=== PATIENT | female | born 1995 | race Caucasian/White ===

== ENCOUNTER → 2016-05-11 | Outpatient (CLI) | payer OTHER ==
[~2016-05-11] MED LIST: ALBU1AER9 INH; CLC100X PO; OXYC-57 PO; PRENTAB26 PO
[2016-05-11 13:54] LABS: GTGD 50 Grams
== END | disposition home or self-care (01) ==
LOC: C.LAB1850 12:20
PROVIDERS: ATTEND Obstetrics & Gynecology
DX: Z34.82 Encounter for supervision of other normal pregnancy, second trimester (principal)

== ENCOUNTER → 2016-07-30 | Outpatient (CLI) | payer OTHER, BC ==
[2016-07-30 14:40] LABS: HEMATOCRIT 34.8 % (37-47)
[2016-07-30 17:54] LABS: GTGD 50 Grams
== END | disposition home or self-care (01) ==
LOC: C.LAB1850 12:38
PROVIDERS: ATTEND Obstetrics & Gynecology
DX: Z34.83 Encounter for supervision of other normal pregnancy, third trimester (principal)

== ENCOUNTER → 2016-07-30 | Outpatient (CLI) | payer OTHER, BC ==
[2016-07-30 15:06] LABS: URINE APPEARANCE CLEAR (CLEAR); URINE BILIRUBIN NEG (NEG); URINE COLOR YELLOW; URINE EPITHELIAL CELL AUTO >30 /lpf (0-5); URINE NITRITE NEG (NEG); URINE PH 7.5 (4.5-7.5); URINE SPECIFIC GRAVITY 1.019 (1.000-1.030); UROBILINOGEN NEG (NEG)
[2016-07-30 15:08] LABS: MANUAL MICROSCOPIC REQUIRED? NO; REVIEW REQ? NO
== END | disposition home or self-care (01) ==
LOC: C.LABSPEC 13:39
PROVIDERS: ATTEND Obstetrics & Gynecology
DX: Z34.83 Encounter for supervision of other normal pregnancy, third trimester (principal)

== ENCOUNTER → 2016-10-02 | Outpatient (CLI) | payer OTHER, BC | END | disposition home or self-care (01) | LOC: C.LABSPEC 14:02 | PROVIDERS: ATTEND Obstetrics & Gynecology | DX: Z34.83 Encounter for supervision of other normal pregnancy, third trimester (principal) ==

== ENCOUNTER 2016-10-18 05:27 | Outpatient (CLI) | payer OTHER, BC ==
[~2016-10-18] VITALS: Ht 165.1 cm; Wt 88.0 kg
[~2016-10-18 05:27] MED LIST changes: -OXYC-57 PO
[2016-10-18 06:19] VITALS: Ht 165.1 cm; Wt 88.0 kg
[2016-10-28] MEDS ORDERED: OXYC-57 PO (08:58)
== END 2016-10-18 12:25 | disposition home or self-care (01) ==
LOC: C.OPB 05:27 → EEVIPCON 05:27 → C.LD 05:29 → C.OPB 12:25
PROVIDERS: ATTEND Obstetrics & Gynecology
DX: O62.9 Abnormality of forces of labor, unspecified (principal); O99.513 Diseases of the respiratory system complicating pregnancy, third trimester; J45.909 Unspecified asthma, uncomplicated; O99.613 Diseases of the digestive system complicating pregnancy, third trimester; K58.9 Irritable bowel syndrome, unspecified; Z3A.39 39 weeks gestation of pregnancy; Z87.442 Personal history of urinary calculi

== ENCOUNTER 2016-10-26 22:44 | Inpatient (IN) | payer OTHER, BC ==
[~2016-10-26] VITALS: Ht 160 cm; Wt 89.0 kg
[~2016-10-26 22:44] MED LIST changes: -CLC100X PO
[2016-10-26] MEDS ORDERED: LACTATED RINGER'S 1000ML 1,000 ML IV PRN ×2 (23:11→23:59)
[2016-10-26] MEDS ORDERED: LACTATED RINGER'S 1000ML 1,000 ML IV SCH ×2 (23:11→23:59)
[2016-10-26] MEDS ORDERED: BUPIVACAINE 0.25% 30 ML VIAL ONE (23:25)
[2016-10-26] MEDS ORDERED: FENTANYL 2MCG/ML ROPIV 1.25MG/ML 100ML BAG EPI ONE (23:26)
[2016-10-26] MEDS ORDERED: FENTANYL CITRATE INJ 50 MCG/1 ML 2 ML VIAL ONE (23:26)
[2016-10-26] MEDS ORDERED: EpHEDrine SULFATE INJ 50 MG/ML AMP ONE (23:26)
[2016-10-26 23:30] LABS: HEMATOCRIT 38.1 % (37-47); MEAN CELL VOLUME 84.3 fL (80-100); MEAN CORPUSCULAR HEMOGLOBIN 27.4 pg (25-34); MEAN CORPUSCULAR HGB CONC 32.5 g/dl (32-36); MEAN PLATELET VOLUME 12.4 fL (7.4-10.4); PLATELET COUNT 179 K/uL (130-400); RED BLOOD COUNT 4.52 M/uL (4.2-5.4)
[2016-10-27] MEDS ORDERED: LACTATED RINGER'S 1000ML 500 ML IV PRN (00:42)
[2016-10-27] MEDS ORDERED: NALOXONE HCL INJ 1 MG in SODIUM CHLORIDE 0.9% 1000ML 1,000 ML IV PRN (00:42)
[2016-10-27] MEDS ORDERED: NALBUPHINE HCL INJ 10 MG/ML AMP IV PRN (00:45)
[2016-10-27] MEDS ORDERED: ONDANSETRON INJ 2 MG/ML 2 ML VIAL IV PRN (00:45)
[2016-10-27] MEDS ORDERED: EpHEDrine SULFATE INJ 50 MG/ML AMP IV PRN (00:45)
[2016-10-27] MEDS ORDERED: FENTANYL 2MCG/ML ROPIV 1.25MG/ML 100ML BAG EPI PRN (00:45)
[2016-10-27] MEDS ORDERED: NALOXONE HCL INJ 0.4 MG/1 ML VIAL/CARP IV PRN (00:45)
[2016-10-27] MEDS ORDERED: DiphenhydrAMINE HCL 50 MG/ML VIAL IV PRN (00:45)
[2016-10-27 00:59] VITALS: Ht 160 cm; Wt 89.0 kg
[2016-10-27] MEDS ORDERED: OXYTOCIN 30 UNITS/500ML NSS IV ONE ×2 (01:59→02:07)
[2016-10-27] MEDS ORDERED: SUPERCREAM 0.870 % 15GM JAR EXT PRN (02:30)
[2016-10-27] MEDS ORDERED: ACETAMINOPHEN/CODEINE 300/30MG TAB PO PRN (02:30)
[2016-10-27] MEDS ORDERED: OXYTOCIN 30 UNITS/500ML NSS IV PRN (02:30)
[2016-10-27] MEDS ORDERED: ACETAMINOPHEN 325 MG TAB PO PRN (02:30)
[2016-10-27] MEDS ORDERED: BENZOCAINE 20% AER SPR 82.5 GM CAN EXT PRN (02:30)
[2016-10-27] MEDS ORDERED: HYDROCORTISONE ACETATE 25 MG SUPP PR PRN (02:30)
[2016-10-27] MEDS ORDERED: LANOLIN OINT EXT PRN ×2 (02:30)
--- NOTE | 2016-10-27 02:35 | Vaginal Delivery Summary ---
Vaginal Delivery Summary Findings: Viable female with Apgars of 8 and 9. Baby delivered over a midline second-degree laceration. Laceration repaired with 4-0 Vicryl in routine fashion. Estimated blood loss 300 cc. Labor note: The patient is a 21-year-old 2 para 1 with an EDC of 15July at 40+ weeks gestational age who presented to labor and delivery for evaluation of questionable ruptured membranes. Patient states that she began having contractions and leaking fluid. The patient has had a benign course. Her blood type is O+, antibody negative, rubella immune, hepatitis B negative, she declined quad screen, she had a normal 1 hour Glucola 2, negative third trimester beta strep culture. Upon admission the patient's membranes were found to be intact but she was 5-6 cm junior regularly in labor. She had a category 1 tracing. Patient requested and received an epidural from anesthesia. Following the epidural the patient was fully dilated with ruptured membranes. Patient pushed for approximately 10 minutes delivering a viable female infant, over a midline second-degree laceration. Cord was clamped and cut. Cord blood Samples were obtained. Placenta was delivered spontaneously. Midline laceration repaired with 4-0 Vicryl in a routine fashion. Estimated blood loss 300 cc. Sponge and needle count was correct.
--- NOTE | 2016-10-27 05:03 | Anesthesia Procedure Note ---
Anesthesia Epidural Removal Nt Date & Time Oct 27, 2016 at 05:03 Vital Signs Pain Intensity: 1.0 Notes Mental Status: alert / awake / arousable, participated in evaluation Nausea / Vomiting: adequately controlled Pain: adequately controlled Airway Patency, RR, SpO2: stable & adequate BP & HR: stable & adequate Hydration State: stable & adequate Neuraxial Anesthesia: was administered Anesthetic Complications: no major complications apparent, pt satisfied with anesthetic care Epidural: removed without complications, with tip intact
[2016-10-27] MEDS: IBUPROFEN 600 MG TAB PO PRN ×4 (05:38→23:12)
[2016-10-27 05:45] VITALS: BP 136/69; PULSE 88; TEMP 36.9
[2016-10-27 07:00] VITALS: BP 135/73; PULSE 76; TEMP 36.9; O2SAT 98
[2016-10-27] MEDS: PRENATAL VITAMIN TAB PO SCH (08:17)
[2016-10-27] MEDS: DOCUSATE SODIUM 100 MG CAP PO SCH ×2 (08:17→19:37)
[2016-10-27] MEDS: FERROUS SULFATE 325 MG TAB PO SCH (08:17)
[2016-10-27 11:25] VITALS: BP 126/77; PULSE 58; TEMP 36.8; O2SAT 98
[2016-10-27 16:00] VITALS: BP 126/83; PULSE 83; TEMP 36.6
[2016-10-27] MEDS: ACETAMINOPHEN/CODEINE 300/30MG TAB PO PRN ×2 (19:38→23:13)
[2016-10-27 19:40] VITALS: BP 124/77; PULSE 87; TEMP 36.5
[2016-10-27 23:45] VITALS: BP 126/76; PULSE 88; TEMP 36.6
[2016-10-28] MEDS ORDERED: OXYCODONE/ACETAMINOPHEN 5-325 TAB PO PRN (04:15)
[2016-10-28] MEDS: IBUPROFEN 600 MG TAB PO PRN ×2 (04:33→08:55)
[2016-10-28] MEDS ORDERED: OXYCODONE/ACETAMINOPHEN 5-325 TAB ONE (05:05)
--- NOTE | 2016-10-28 06:56 | OB/GYN Progress Note ---
TECHNICIAN ASSISTANT Progress Note Date of Service Oct 28, 2016. Subjective conversation w/ patient, physical exam, chart review, lab review Ambulation: ambulating normally Voiding: no voiding problems Passing Gas: Yes Diet Tolerance: Regular Diet Lochia: Small Feeding Type: Breast Feeding (and bottle supplement) Pain: Says has some tailbone pain, controlled with PO pain meds Review of Systems Constitutional: No fever Respiratory: No cough, No shortness of breath Cardiac: No chest pain Abdomen: No nausea, No vomiting, No diarrhea Female : No dysuria Objective Vital Signs Date Time Temp Pulse Resp B/P (MAP) Pulse Ox O2 Delivery O2 Flow Rate FiO2 10/27/16 23:45 36.6 88 18 126/76 (93) Room Air 10/27/16 23:45 Room Air 10/27/16 19:40 36.5 87 18 124/77 (93) 10/27/16 16:00 36.6 83 16 126/83 (97) Room Air 10/27/16 16:00 Room Air 10/27/16 11:25 36.8 58 16 126/77 (93) 98 Room Air 10/27/16 08:45 Room Air 10/27/16 07:00 36.9 76 16 135/73 (93) 98 Room Air Physical Exam General Appearance: WELL-APPEARING, WD/WN, NO APPARENT DISTRESS Respiratory/Chest: lungs clear, normal breath sounds Cardiovascular: regular rate, rhythm Abdomen: normal bowel sounds, non tender, soft Fundus: Firm, Non-Tender, Relation to Umbilicus (at umbilicus) Extremities: normal range of motion, non-tender, no pedal edema, no calf tenderness Laboratory Results Last 24 Hours Test 10/28/16 06:24 Assessment and Plan Post- Day Number: 1 Continue Routine Care: 21yo s/p , now PPD #1. - Blood type O pos. GBS negative. Rubella immune. - Vital signs reviewed and stable. - Pain controlled with motrin. - No leg swelling or tenderness on calf palpation. Encourage ambulation. - Encourage breast feeding. - Hemoglobin preop 12.4, post-delivery pending this am. Bleeding has improved. Continue to monitor clinically. - Continue routine post-vaginal delivery care. - Pt agreed with above plan, all current questions answered. Rafa Ruth MD, PGY1 Roof Assembler Physician Supervision Note: I was present with Dr. Ruth during the history and exam. I discussed the case with the resident and agree with the findings and plan as documented in the note. Any exceptions or clarifications are listed here: PPD#1, doing well . Does have tailbone pain, likely bruised. Recommend stool softeners , donut pillow. For pain, percocet has helped. Rx percocet #15 tabs given for tailbone pain - [place] PDMP check. Documented By: Tracy Briceño Resident Tracking Resident Involvement: Resident Care Provided Care Provided: OB Delivery (morning rounds)
[2016-10-28 07:30] VITALS: BP 104/67; PULSE 78; TEMP 36.6
[2016-10-28] MEDS: DOCUSATE SODIUM 100 MG CAP PO SCH (07:37)
[2016-10-28] MEDS: PRENATAL VITAMIN TAB PO SCH (07:37)
[2016-10-28] MEDS: FERROUS SULFATE 325 MG TAB PO SCH (07:37)
--- NOTE | 2016-10-28 08:24 | Discharge Instructions ---
Discharge Instructions Date of Service Oct 28, 2016. Admission Reason for Admission: Check Rupture Discharge Discharge Diagnosis / Problem: Recovery after vaginal delivery Discharge Goals Goal(s): Routine recovery after delivery Medications Continue Dispensed Medications: supercream, dermaplast, tucks, lansinoh Activity Recommendations Activity Limitations: per Instructions/Follow-up section . Instructions / Follow-Up Instructions / Follow-Up ACTIVITY RECOMMENDATIONS: * Gradual return to full activity over the next 2-3 weeks. * No lifting - nothing heavier than baby over the next 2-3 weeks. * Do not engage in vigorous exercise, sexual activity or sports until cleared by your physician. * Do not drive or operate any motorized equipment until cleared by your physician. * You may shower/bathe daily. MEDICATIONS: For discomfort or pain, you may use Acetaminophen (Tylenol), Ibuprofen (Advil), or Naproxen (Aleve) following the package directions. For constipation you may use Colace following the package directions. BREAST CARE: If you are not breast feeding: * Wear a supportive bra 24 hours a day for one to two weeks. * Avoid stimulating your breasts and nipples as much as possible during the first few weeks after delivery. * When taking a shower, have the warm water hit your back, not breasts. * When your breasts feel full, apply ice packs. Usually three to four times a day helps ease the discomfort. * Take a mild pain medication (Tylenol / Motrin) when you are uncomfortable. If breast feeding: * Use breast milk to lubricate nipples. Lansinoh cream may be used for sore nipples. You do not need to remove cream prior to breast feeding. If using a different brand of cream, check the label for directions regarding removal of cream prior to nursing. * Wear a supportive bra. * If having problems with breasts or breast feeding, call a merchandising consultant or your health care provider. EPISIOTOMY CARE: After delivery, if you have an episiotomy (stitches), the following steps will ease discomfort and aid healing. * For the first 24 hours after delivery, place ice packs next to your episiotomy to help reduce swelling. * After the first 24 hour-period, sitz baths, either portable or in the tub, are suggested. A shower with a shower arm sprayed over the episiotomy may be comforting. * Keke care should be done after each voiding and bowel movement. Squirt warm water from a plastic bottle over the perineum (region of the body between the anus and urinary opening) and pat dry. * Use Dermoplast to ease discomfort. Shake container. Stickney directly over the episiotomy. Place a Tucks on a clean sanitary pad next to your episiotomy. SPECIAL CARE INSTRUCTIONS: When you are discharged from the hospital, it is important for you to follow the instructions listed below: * During the first week at home, you should be able to care for yourself and your baby. In addition, the usual light household activities are encouraged. * Limit your activities to the way you feel. Do not try to clean the house or move furniture. Be sensible. * If you actively engage in sports and have done so up until the time of your delivery, you may resume these activities as soon as you feel able. This may take up to one month or even longer. Use good judgment. * Continue to take your vitamins for at least six weeks after the of your baby. * Your diet need not be limited unless you were on a special diet before your delivery. Breast-feeding mothers need around 2500 calories per day and at least 64-80 ounces of fluid per day (8 to 10 glasses). * You should eat foods from the four major food groups. Crash diets or fad diets are to be avoided. Eating lean meats, fresh fruits and vegetables, low-fat dairy products, high fiber foods and a regular exercise program, will help you get back to your pre- weight without putting your health at risk. * Constipation is sometimes a problem after delivery. Take a mild laxative as needed. If breast feeding, Milk of Magnesia is acceptable to use. You may use a suppository or Fleets enema if no episiotomy. * A daily shower or tub bath is suggested. Be sure to thoroughly and gently dry the perineum. * A bloody vaginal discharge will usually continue until around four weeks post . A small amount of bleeding may continue for as long as six weeks. Vaginal discharge changes from the bright red bleeding after delivery to pink then brownish and finally yellowish-pink before becoming white and disappearing. * Bleeding may increase with activity. Your first period may come in 4-8 weeks. If you are breast feeding, your period may be delayed even longer. * York[place] (sex) can begin whenever both you and your partner feel comfortable and do not have any form of genital infection. It is recommended that you wait at least six weeks for internal and external healing to occur. If you have questions, please talk to your health care practitioner. A condom should be used to prevent infection and . * Foreplay, gentle intercourse and lubrication is very important the first several times to prevent pain. A water-based lubricant such as K-Y jelly or Astroglide may be used. * If you have RH negative blood and your baby is RH positive, you will receive RHOGAM by injection prior to discharge. The nurse will give you a card to keep with you that has the date and place that you received RHOGAM after delivery. * During your care, you had a Rubella screen done to check for the presence of rubella antibodies in your blood. If your test was negative, you will receive a Rubella vaccine prior to discharge. This vaccine may cause a fever, soreness at the injection site and flu-like symptoms. If these symptoms persist, notify your health care practitioner. is not advised for one month after a Rubella vaccine. * Verbalizes understanding of car seat law as reviewed with patient nursing. * Car Seat hand-out given and reviewed with patient by nursing. * Shaken baby information reviewed with patient by nursing. Call you doctor if: * Heavy bleeding (saturating several pads an hour) or passing clots the size of your fist. * A fever >101 degrees F (38.3 degrees C) on two occasions four hours apart and /or chills. * Unusual pain in the pelvic or vaginal areas. * "Baby Blues" lasting longer than two weeks. If you have any questions or concerns, call your health care practitioner at . FOLLOW UP VISIT: * Please call the office at to schedule a 6 week examination. It is important you keep this appointment. It is important for you to make arrangements for either yearly or twice yearly check-ups thereafter. Current Hospital Diet Patient's current hospital diet: Regular OB Diet Discharge Diet Recommended Diet: Regular OB Diet Pending Studies Studies pending at discharge: no Medical Emergencies . Who to Call and When: Medical Emergencies: If at any time you feel your situation is an emergency, please call [phone] immediately. . Non-Emergent Contact Non-Emergency issues call your: Pie Crust Mixer . . "Provider Documentation" section prepared by Rafa Ruth. . VTE Core Measure Inpt VTE Proph given/why not?: Treatment not indicated
[2016-10-28] MEDS ORDERED: OXYC-57 PO (08:58)
[2016-10-28] MEDS ORDERED: DIPHTHERIA/TETANUS/PERTUSSIS 0.5 ML SYR/VIAL IM. ONE (09:00)
[2016-10-28 11:13] VITALS: BP_DIAS 67; PULSE 78; TEMP 36.6
[2016-10-28] MEDS ORDERED: BISACODYL 5 MG TABEC PO SCH (20:00)
== END 2016-10-28 11:20 | disposition home or self-care (01) | DRG 775 ==
LOC: C.OPB 22:44 → EEVIPCON 22:44 → C.LD 22:44 → C.OPB 23:12 → C.LD 23:12 → C.OBG 10-27 05:49
PROVIDERS: ADMIT Obstetrics & Gynecology; ATTEND Obstetrics & Gynecology
PROC: 0KQM0ZZ Repair Perineum Muscle, Open Approach (ICD-10-PCS; principal; 2016-10-27)
PROC: 10E0XZZ Delivery of Products of Conception, External Approach (ICD-10-PCS; principal; 2016-10-27)
DX: O48.0 Post-term pregnancy (principal); O70.1 Second degree perineal laceration during delivery; O71.89 Other specified obstetric trauma; Z37.0 Single live birth; Z3A.40 40 weeks gestation of pregnancy

== ENCOUNTER 2017-03-23 19:03 | Observation (INO) | payer OTHER, BC ==
[~2017-03-23] VITALS: Ht 160 cm; Wt 80.6 kg
[~2017-03-23 19:03] MED LIST changes: +OXYC-57 PO; -PRENTAB26 PO
[2017-03-23] MEDS ORDERED: ONDANSETRON INJ 2 MG/ML 2 ML VIAL IV STA ×2 (19:17→21:18)
[2017-03-23] MEDS ORDERED: MoRPHine SULFATE 10 MG/ML CARP/VIAL IV STA (19:17)
[2017-03-23] MEDS ORDERED: SODIUM CHLORIDE 0.9% 1000ML 1,000 ML IV STA (19:17)
[2017-03-23 19:42] LABS: BASO % 0.5 %; BASO ABS # 0.04 K/uL (0-0.2); COMPLETE YES; HEMATOCRIT 42.3 % (37-47); IG% 0.3 %; LYMPH % 29.3 %; LYMPH ABS # 2.15 K/uL (1.2-3.4); MEAN CELL VOLUME 86.7 fL (80-100); MEAN CORPUSCULAR HEMOGLOBIN 29.1 pg (25-34); MEAN CORPUSCULAR HGB CONC 33.6 g/dl (32-36); MONO % 5.4 %; NEUT % 62.5 %; PLATELET COUNT 245 K/uL (130-400); RED BLOOD COUNT 4.88 M/uL (4.2-5.4); WHITE BLOOD COUNT 7.35 K/uL (4.8-10.8)
[2017-03-23 19:45] LABS: URINE APPEARANCE CLEAR (CLEAR); URINE BILIRUBIN NEG (NEG); URINE COLOR YELLOW; URINE EPITHELIAL CELL AUTO >30 /lpf (0-5); URINE NITRITE NEG (NEG); URINE SPECIFIC GRAVITY 1.025 (1.000-1.030); UROBILINOGEN NEG (NEG)
[2017-03-23 19:54] LABS: MANUAL MICROSCOPIC REQUIRED? NO; REVIEW REQ? NO
[2017-03-23 19:57] LABS: BUN/CREATININE RATIO 14.9 (10-20); CALCIUM 9.7 mg/dl (8.5-10.1); CREATININE 0.9 mg/dl (0.60-1.20); POTASSIUM 3.5 mmol/L (3.5-5.1)
[2017-03-23] MEDS ORDERED: ALBU18002 INH (19:58)
[2017-03-23 20:00] LABS: ALB/GLOB RATIO 1.1 (0.9-2)
[2017-03-23] MEDS ORDERED: HYDROmorphone INJ 1 MG/ML SYR IV STA (20:12)
--- NOTE | 2017-03-23 20:31 | DIAGNOSTIC IMAGING REPORT ---
CT OF THE ABDOMEN AND PELVIS WITHOUT CONTRAST CLINICAL HISTORY: Right lower quadrant pain. Right flank pain. COMPARISON STUDY: CT of the abdomen and pelvis November 20, 2013 and [facility] February 14, 2014. TECHNIQUE: Axial images of the abdomen and pelvis were obtained without IV contrast. Images were reviewed in the axial, sagittal, and coronal planes. A dose lowering technique was utilized adhering to the principles of ALARA. FINDINGS: Note is made of severe right hydroureteronephrosis due to a 7 mm distal right ureteral calculus. There is a 2 mm calculus within the upper pole of the right kidney. There are no left ureteral calculi. Evaluation the remainder of the abdomen and pelvis is suboptimal on this unenhanced exam. The liver, spleen, adrenal glands and pancreas are unremarkable. There is no evidence for a bowel obstruction. The appendix is normal. There is no lymphadenopathy. There are no suspicious skeletal lesions. Right adrenal calcifications are chronic. IMPRESSION: 1. 7 mm distal right ureteral calculus which results in severe right hydroureteronephrosis. 2. 2 mm right renal calculus. Electronically signed by: Ruy Samuel M.D. 03/23/2017 8:30 PM Dictated Date/Time: 03/23/2017 8:25 PM
[2017-03-23] MEDS ORDERED: PROMETHAZINE HCL INJ 25 MG in SODIUM CHLORIDE 0.9% 50ML 50 ML IV STA (21:18)
[2017-03-23] MEDS ORDERED: HYDROmorphone INJ 0.5 MG/0.5 ML SYR IV STA (21:18)
[2017-03-23] MEDS ORDERED: TAMSULOSIN HCL 0.4 MG CAP PO ONE (21:30)
--- NOTE | 2017-03-23 21:40 | EMERGENCY ROOM VISIT NOTE ---
History First contact with patient: 19:13 Chief Complaint: KIDNEY STONE Stated Complaint: KIDNEY STONES History of Present Illness The patient is a 22 year old female who presents to the Emergency Room with complaints of a possible kidney stone. She reports pain that started around 5 PM that was sudden in onset. The pain radiates from her right flank into her right groin and vaginal region. The patient has had kidney stones in the past, and reports that this feels the same. She reports mild nausea without vomiting. She denies any preceding urinary symptoms or hematuria. She denies any prior history of ovarian cyst or other abdominal surgeries. She rates her discomfort a 7 out of 10. The pain does not radiate into the left abdomen region. There are no alleviating a regular any factors for her pain, and she describes the pain as a very slow waxing and waning discomfort. Review of Systems HEENT: Denies dizziness, visual problems, hearing loss, tinnitus. Denies difficulty swallowing or oral lesions. PULMONARY: Denies cough, shortness of breath, sputum production or hemoptysis. CARDIOVASCULAR: Denies chest pain, palpitations, dyspnea on exertion, orthopnea or peripheral edema. GASTROINTESTINAL: Denies diarrhea or constipation, otherwise see history of present illness. GENITOURINARY: Denies dysuria, frequency, urgency or nocturia. NEUROLOGIC: Denies history of epilepsy, CVA, TIA or chronic headaches. MUSCULOSKELETAL: Denies history of joint tenderness/swelling. SKIN: Denies rashes or lesions. PSYCHIATRIC: Denies history of depression or mental illness. ENDOCRINE: Denies history of diabetes or thyroid disorders. Past Medical/Surgical History Medical Problems: (1) Intrauterine (2) postdates (3) Renal colic (4) Supervision of normal intrauterine in multigravida in third trimester Family History Unremarkable Social History Smoking Status: Never Smoker Alcohol Use: none Marital Status: single Housing Status: lives with family Occupation Status: employed Current/Historical Medications Scheduled Multivit/Min/Iron/Fol Ac/Pren ( Vitamin), 1 TAB PO DAILY Scheduled PRN Albuterol Sulfate (Proair Respiclick), 2 PUFFS INH UD PRN for Shortness of Breath Physical Exam Vital Signs Date Time Temp Pulse Resp B/P (MAP) Pulse Ox O2 Delivery O2 Flow Rate FiO2 03/23/17 21:06 105 16 114/58 100 Room Air 03/23/17 19:08 36.4 81 18 141/87 100 Room Air Physical Exam CONSTITUTIONAL: Healthy and well nourished. Alert and oriented X 3 with positive affect. Patient appears in moderately severe discomfort, and is crying. HEENT: Normocephalic, atraumatic. Pupils equal, round and reactive. No scleral icterus or conjunctival injection. NECK: Full active range of motion without discomfort. RESPIRATORY: Clear to auscultation bilaterally with no wheezing, crackles, rhonchi or stridor. CARDIOVASCULAR: Regular rate and rhythm with no murmurs, rubs or gallops. GASTROINTESTINAL: Bowel sounds present in all quadrants. Patient has mild right lower quadrant tenderness to palpation with negative Rovsing sign, negative psoas/obturator sign and negative heel tap. Mildly positive right CVA tenderness. No abdominal rigidity, guarding or rebound. MUSCULOSKELETAL: Full range of motion of all joints without discomfort. INTEGUMENTARY: No rash or other significant dermatologic conditions noted. HEMATOLOGIC: No ecchymosis or petechiae noted. NEUROLOGIC: No focal neurologic deficits noted. Medical Decision & Procedures ER Provider Diagnostic Interpretation: Noncontrast CT of the abdomen and pelvis CT OF THE ABDOMEN AND PELVIS WITHOUT CONTRAST CLINICAL HISTORY: Right lower quadrant pain. Right flank pain. COMPARISON STUDY: CT of the abdomen and pelvis November 20, 2013 and [facility] February 14, 2014. TECHNIQUE: Axial images of the abdomen and pelvis were obtained without IV contrast. Images were reviewed in the axial, sagittal, and coronal planes. A dose lowering technique was utilized adhering to the principles of ALARA. FINDINGS: Note is made of severe right hydroureteronephrosis due to a 7 mm distal right ureteral calculus. There is a 2 mm calculus within the upper pole of the right kidney. There are no left ureteral calculi. Evaluation the remainder of the abdomen and pelvis is suboptimal on this unenhanced exam. The liver, spleen, adrenal glands and pancreas are unremarkable. There is no evidence for a bowel obstruction. The appendix is normal. There is no lymphadenopathy. There are no suspicious skeletal lesions. Right adrenal calcifications are chronic. IMPRESSION: 1. 7 mm distal right ureteral calculus which results in severe right hydroureteronephrosis. 2. 2 mm right renal calculus. Laboratory Results 03/23/17 19:22 Red Blood Count 4.88, Mean Corpuscular Volume 86.7, Mean Corpuscular Hemoglobin 29.1, Mean Corpuscular Hemoglobin Concent 33.6, Mean Platelet Volume 12.0, Neutrophils (%) (Auto) 62.5, Lymphocytes (%) (Auto) 29.3, Monocytes (%) (Auto) 5.4, Eosinophils (%) (Auto) 2.0, Basophils (%) (Auto) 0.5, Neutrophils # (Auto) 4.59, Lymphocytes # (Auto) 2.15, Monocytes # (Auto) 0.40, Eosinophils # (Auto) 0.15, Basophils # (Auto) 0.04 03/23/17 19:22 Test 03/23/17 19:22 03/23/17 21:33 White Blood Count 7.35 K/uL (4.8-10.8) Red Blood Count 4.88 M/uL (4.2-5.4) Hemoglobin 14.2 g/dL (12.0-16.0) Hematocrit 42.3 % (37-47) Mean Corpuscular Volume 86.7 fL (80-100) Mean Corpuscular Hemoglobin 29.1 pg (25-34) Mean Corpuscular Hemoglobin Concent 33.6 g/dl (32-36) Platelet Count 245 K/uL (130-400) Mean Platelet Volume 12.0 fL (7.4-10.4) Neutrophils (%) (Auto) 62.5 % Lymphocytes (%) (Auto) 29.3 % Monocytes (%) (Auto) 5.4 % Eosinophils (%) (Auto) 2.0 % Basophils (%) (Auto) 0.5 % Neutrophils # (Auto) 4.59 K/uL (1.4-6.5) Lymphocytes # (Auto) 2.15 K/uL (1.2-3.4) Monocytes # (Auto) 0.40 K/uL (0.11-0.59) Eosinophils # (Auto) 0.15 K/uL (0-0.5) Basophils # (Auto) 0.04 K/uL (0-0.2) RDW Standard Deviation 39.9 fL (36.4-46.3) RDW Coefficient of Variation 12.6 % (11.5-14.5) Immature Granulocyte % (Auto) 0.3 % Immature Granulocyte # (Auto) 0.02 K/uL (0.00-0.02) Urine Color YELLOW Urine Appearance CLEAR (CLEAR) Urine pH 6.0 (4.5-7.5) Urine Specific Wayne 1.025 (1.000-1.030) Urine Protein TRACE (NEG) Urine Glucose (UA) NEG (NEG) Urine Ketones NEG (NEG) Urine Occult Blood 1+ (NEG) Urine Nitrite NEG (NEG) Urine Bilirubin NEG (NEG) Urine Urobilinogen NEG (NEG) Urine Leukocyte Esterase NEG (NEG) Urine WBC (Auto) 1-5 /hpf (0-5) Urine RBC (Auto) 5-10 /hpf (0-4) Urine Hyaline Casts (Auto) 1-5 /lpf (0-5) Urine Epithelial Cells (Auto) >30 /lpf (0-5) Urine Bacteria (Auto) NEG (NEG) Urine Test NEG (NEG) Anion Gap 9.0 mmol/L (3-11) Est Creatinine Clear Calc Drug Dose 96.9 ml/min Estimated GFR () 103.7 Estimated GFR (Non- 89.5 BUN/Creatinine Ratio 14.9 (10-20) Calcium Level 9.7 mg/dl (8.5-10.1) Total Bilirubin 0.4 mg/dl (0.2-1) Aspartate Amino Transf (AST/SGOT) 20 U/L (15-37) Alanine Aminotransferase (ALT/SGPT) 24 U/L (12-78) Alkaline Phosphatase 64 U/L (45-117) Total Protein 8.3 gm/dl (6.4-8.2) Albumin 4.3 gm/dl (3.4-5.0) Globulin 4.0 gm/dl (2.5-4.0) Albumin/Globulin Ratio 1.1 (0.9-2) Lipase 327 U/L (73-393) The above labs were reviewed. Urinalysis shows hematuria without signs of infection. CBC, partial renal profile, LFTs and lipase are normal. Urine was negative. Medications Administered Medications (Trade) Dose Ordered Sig/Yasmany Route Start Time Stop Time Status Last Admin Dose Admin Sodium Chloride 1,000 ml @ 999 mls/hr Q1H1M STAT IV 03/23/17 19:17 1217 20:17 DC 03/23/17 19:17 999 MLS/HR Morphine Sulfate (MoRPHine SULFATE INJ) 8 mg NOW STAT IV 03/23/17 19:17 12/12/17 19:19 DC 03/23/17 19:36 8 MG Ondansetron HCl (Zofran Inj) 4 mg NOW STAT IV 03/23/17 19:17 03/23/17 19:19 DC 03/23/17 19:35 4 MG Hydromorphone HCl (Dilaudid Inj) 1 mg NOW STAT IV 03/23/17 20:12 03/23/17 20:13 DC 03/23/17 20:17 1 MG Hydromorphone HCl (Dilaudid Inj) 0.5 mg NOW STAT IV 03/23/17 21:18 03/23/17 21:19 DC 03/23/17 21:32 0.5 MG Ondansetron HCl (Zofran Inj) 4 mg NOW STAT IV 03/23/17 21:18 03/23/17 21:20 DC 03/23/17 21:32 4 MG Tamsulosin HCl (Flomax Cap) 0.4 mg NOW ONCE PO 03/23/17 21:30 03/23/17 21:31 DC 03/23/17 21:32 0.4 MG Procedure 1. IV hydration: The patient was administered a normal saline 1 L bolus 2. IV medications: The patient was initially administered morphine 8 mg and Zofran 4 mg IVP. She was then administered Dilaudid 0.5 mg for persistent pain. Upon reevaluation, the patient still had severe pain, and was then administered Dilaudid 1 mg and Zofran 4 mg IVP. ED Course Patient history and physical exam were performed. Nurse's notes were reviewed. Vital signs were reviewed, showing an elevated blood pressure 141/87. The patient is afebrile and not tachycardic. The patient appears in significant discomfort. IV access was established, and labs were drawn. The patient was hydrated with normal saline, and was administered IV medications as discussed in the previous Procedure section. Labs were reviewed to show no significant abnormalities. Urine was negative, and urinalysis shows hematuria without signs of infection. Noncontrast CT of the abdomen and pelvis shows an 8 mm distal right ureteral calculus with severe hydroureteronephrosis. The patient was still quite uncomfortable, requiring 2 additional doses of Dilaudid without any significant relief of her pain. She was also nauseated, and provided additional IV Zofran. At this point, the case was further discussed with Dr. Garcia who recommended observation overnight, remaining nothing by mouth status after midnight as she may need to take the patient to surgery tomorrow afternoon if her symptoms persist. Hopefully she will pass the stone overnight. The case was then discussed [facility] Dr. Murphy[facility] and [facility] orders. The patient was administered Flomax 0.4 mg orally. At the time of transfer of care, the patient rated her discomfort a 5 out of 10. Medical Decision Patient presents to the emergency department with a 7 mm distal right ureteral calculus with severe hydroureteronephrosis. Her laboratory studies is not show any kidney injury or signs of urinary tract infection. The patient does have intractable back pain, and warrants observation overnight with possible stone retrieval tomorrow if symptoms persist. Remaining labs are not suggestive of cholecystitis, hepatitis, pancreatitis or anemia. Physical exam findings are not suggestive of appendicitis, peritonitis or musculoskeletal etiology. [place] Drug Monitoring Program Search Results: patient reviewed within database, no issues identified Medication Reconcilliation Current Medication List: was personally reviewed by nd Blood Pressure Screening Patient's blood pressure: Elevated blood pressure Blood pressure disposition: Elevated BP felt to be situational Impression Primary Impression: Right ureteral calculus Additional Impression: Hydroureteronephrosis Departure Information Referrals Perla Ruffin D.O. (PCP) Patient Instructions [facility] Problem Qualifiers
[2017-03-23 21:56] VITALS: Ht 160 cm; Wt 80.6 kg
[2017-03-23] MEDS ORDERED: HYDROmorphone INJ 0.5 MG/0.5 ML SYR IV PRN (22:00)
[2017-03-23] MEDS ORDERED: LORAZEPAM 2 MG/ML 1 ML VIAL IV PRN (22:00)
[2017-03-23] MEDS ORDERED: LEVALBUTEROL/IPRATROPIUM NEB INH PRN (22:00)
[2017-03-23] MEDS ORDERED: TRAMADOL HCL 50 MG TAB PO PRN (22:00)
[2017-03-23] MEDS ORDERED: ACETAMINOPHEN 325 MG TAB PO PRN (22:00)
[2017-03-23] MEDS ORDERED: ONDANSETRON INJ 2 MG/ML 2 ML VIAL IV PRN (22:00)
[2017-03-23 22:10] VITALS: BP 114/71; PULSE 78; TEMP 36.6; O2SAT 100
[2017-03-23] MEDS ORDERED: LEVALBUTEROL 1.25MG/0.5ML NEB INH PRN (22:15)
[2017-03-23] MEDS ORDERED: IPRATROPIUM BROMIDE NEB SOLN 0.02% 2.5 ML VIAL INH PRN (22:15)
[2017-03-23] MEDS: D5NSS + 20MEQ KCL 1,000 ML IV SCH (22:38)
--- NOTE | 2017-03-23 22:49 | HISTORY & PHYSICAL EXAMINATION ---
DATE OF ADMISSION: 03/23/2017 PCP: Dr. Ruffin CHIEF COMPLAINT: Right flank pain. HISTORY OF PRESENT ILLNESS: History obtained from the patient and records. Medical history significant for urolithiasis, asthma. One day history of achy right lower quadrant and right flank pain going to the groin, similar to kidney stone pain. Some nausea, no vomiting. No chest pain, no shortness of breath, no fever, no chills, no hematuria. Loose stools as per the patient. Intractable pain in the Emergency Room. MEDICAL HISTORY: As above. SURGERIES: She has had lithotripsy, adenoidectomy, tympanostomy tube placement. HOME MEDICATIONS: Include vitamins, albuterol p.r.n., docusate sodium. FAMILY HISTORY: Hypertension. PERSONAL SOCIAL HISTORY: Nonsmoker, no chronic intake of alcoholic beverages. specialty clinic employee. REVIEW OF SYSTEMS: As per HPI. All 10 systems reviewed. All other ROS negative. PHYSICAL EXAMINATION: VITAL SIGNS: Blood pressure noted to be 114/58, pulse rate 105, RR 16, temperature 37, sats 100% on room air. GENERAL: Noted to be uncomfortable, obese, no respiratory distress. SKIN: Normal color, warm. HEENT: Talent palpebral conjuctivae. No ptosis. Dry buccal mucosa. NECK: Short neck. No tenderness. CHEST: Clear to auscultation, no tenderness. HEART: tachycardic. No murmur. ABDOMEN: Right sided abdominal tenderness, some distention. EXTREMITIES: No edema, no tenderness. No gross deformity. NEUROLOGIC: Coherent. No gross focality. LABORATORY DATA: Hemoglobin was noted to be 14.2, hematocrit 42.3, white cell count 9, platelets 245. Sodium 136, potassium 3.5, chloride 104, CO2 of 24, BUN 13, creatinine 0.9, glucose noted to be 84. UA, occult blood positive, trace protein, WBC 1-5. CT abdomen and pelvis, 7 mm distal right ureteral calculus with severe right hydroureteronephrosis, 2 mm right renal calculus. ASSESSMENT: 1. Right renal colic history of urolithiasis status post lithotripsy. No sepsis. 2. Asthma, controlled. 3. Diarrhea, rule out Clostridium difficile. PLAN: Observation GMF Analgesia Continue Flomax Urology consult. RE right renal colic ([place] [facility]'s family requesting for Dr. Dickerson.) Stool C. diff. DVT prophylaxis, SCDs. Full code. MTDD
[2017-03-23] MEDS ORDERED: PRENTAB26 PO (23:36)
[2017-03-24] MEDS ORDERED: IV FLUIDS COMPLETED PRN (01:15)
--- NOTE | 2017-03-24 07:28 | Urology Consultation ---
History General Date of Service: Mar 24, 2017. Chief Complaint: right flank pain Primary Care Physician: Perla Ruffin D.O. Pt seen a urologist before?: Yes ([facility]ON[facility], Dr. Esdras Wilder) If yes, why?: nephrolithiasis History of Present Illness 22 yo female with a hx of nephrolithiasis presents to [facility] with acute onset right flank pain and n/v yesterday. Pt denies any f/c, dysuria, or hematuria. CT scan showing a 7mm distal right ureteral stone. Pt reports her pain is a 4/10 this morning. N/v has resolved. She is afebrile. White count and Cr are normal. She has a hx of ESWL and passing stones on her own in the past. Imaging Imaging: CT Laboratory Last 24 Hours Test 03/23/17 19:22 White Blood Count 7.35 K/uL Red Blood Count 4.88 M/uL Hemoglobin 14.2 g/dL Hematocrit 42.3 % Mean Corpuscular Volume 86.7 fL Mean Corpuscular Hemoglobin 29.1 pg Mean Corpuscular Hemoglobin Concent 33.6 g/dl Platelet Count 245 K/uL Mean Platelet Volume 12.0 fL Neutrophils (%) (Auto) 62.5 % Lymphocytes (%) (Auto) 29.3 % Monocytes (%) (Auto) 5.4 % Eosinophils (%) (Auto) 2.0 % Basophils (%) (Auto) 0.5 % Neutrophils # (Auto) 4.59 K/uL Lymphocytes # (Auto) 2.15 K/uL Monocytes # (Auto) 0.40 K/uL Eosinophils # (Auto) 0.15 K/uL Basophils # (Auto) 0.04 K/uL RDW Standard Deviation 39.9 fL RDW Coefficient of Variation 12.6 % Immature Granulocyte % (Auto) 0.3 % Immature Granulocyte # (Auto) 0.02 K/uL Urine Color YELLOW Urine Appearance CLEAR Urine pH 6.0 Urine Specific [place] 1.025 Urine Protein TRACE Urine Glucose (UA) NEG Urine Ketones NEG Urine Occult Blood 1+ Urine Nitrite NEG Urine Bilirubin NEG Urine Urobilinogen NEG Urine Leukocyte Esterase NEG Urine WBC (Auto) 1-5 /hpf Urine RBC (Auto) 5-10 /hpf Urine Hyaline Casts (Auto) 1-5 /lpf Urine Epithelial Cells (Auto) >30 /lpf Urine Bacteria (Auto) NEG Urine Test NEG Sodium Level 138 mmol/L Potassium Level 3.5 mmol/L Chloride Level 105 mmol/L Carbon Dioxide Level 24 mmol/L Anion Gap 9.0 mmol/L Blood Urea Nitrogen 13 mg/dl Creatinine 0.90 mg/dl Est Creatinine Clear Calc Drug Dose 96.9 ml/min Estimated GFR () 103.7 Estimated GFR (Non- 89.5 BUN/Creatinine Ratio 14.9 Random Glucose 84 mg/dl Calcium Level 9.7 mg/dl Magnesium Level 2.2 mg/dl Total Bilirubin 0.4 mg/dl Aspartate Amino Transf (AST/SGOT) 20 U/L Alanine Aminotransferase (ALT/SGPT) 24 U/L Alkaline Phosphatase 64 U/L Total Protein 8.3 gm/dl Albumin 4.3 gm/dl Globulin 4.0 gm/dl Albumin/Globulin Ratio 1.1 Lipase 327 U/L Problem List Medical Problems: (1) Hydroureteronephrosis Status: Acute (2) Right ureteral calculus Status: Acute Past History kidney stones Past Surgical History: adenoidectomy, lithotripsy, other (tympanostomy tube placement ) Family History HTN Social History Hx Tobacco Use In Past Year?: No Smoking: non-smoker Alcohol: other (no chronic intake) Marital status: single Housing status: lives with family Occupation status: employed Immunizations History of Influenza Vaccine: N/A History of Tetanus Vaccine?: Unknown History of MDRO No Allergies Coded Allergies: Phenazopyridine (Verified Allergy, Intermediate, SHORTNESS OF BREATH, 10/27) Cephalexin (Verified Allergy, Unknown, HIVES/ THROAT SWELLING, 10/27/16) Medications Home Medications: Home Meds and Scripts Medications Dose Route/Sig Max Daily Dose Days Date Category Proair Respiclick (Albuterol Sulfate) 108 Mcg/Act Aer 2 Puffs INH UD PRN 03/23/17 Reported Vitamin (Prenat Multivit/Solder Making Supervisor/Iron/Folic Ac) Tab 1 Tab PO DAILY 09/17/11 Reported Inpatient Medications: Current Inpatient Medications Medications (Trade) Dose Ordered Sig/Yasmany Route Start Time Stop Time Status Last Admin Dose Admin Acetaminophen (Tylenol Tab) 650 mg Q4H PRN PO 03/23/17 22:00 04/22/17 21:59 Potassium Chloride/Dextrose/ Sod Cl 1,000 ml @ 100 mls/hr Q10H IV 03/23/17 22:30 04/22/17 22:29 03/23/17 22:38 100 MLS/HR Tamsulosin HCl (Flomax Cap) 0.4 mg QAM PO 03/24/17 09:00 04/23/17 08:59 Ondansetron HCl (Zofran Inj) 4 mg Q6H PRN IV 03/23/17 22:00 04/22/17 21:59 Hydromorphone HCl (Dilaudid Inj) 0.5 mg Q3H PRN IV 03/23/17 22:00 04/06/17 21:59 Tramadol HCl (Ultram Tab) not relieved by tylenol @ Q6H PRN PO 03/23/17 22:00 04/22/17 21:59 Lorazepam (Ativan Inj) 0.5 mg Q4H PRN IV 03/23/17 22:00 04/22/17 21:59 Prenat Multivit/ [place]/Iron/Folic Ac ( Vitamin Tab) 1 tab DAILY PO 03/24/17 09:00 04/23/17 08:59 Ipratropium [place] (Atrovent 0.02% 0.5MG/2.5ML Neb) 0.5 mg Q4H PRN INH 03/23/17 22:15 04/22/17 22:14 Levalbuterol (Xopenex 1.25MG/ 0.5ML Neb) 1.25 mg Q4H PRN INH 03/23/17 22:15 04/22/17 22:14 Miscellaneous (Iv Fluids Completed) 1 ea PRN PRN N/A 03/24/17 01:15 03/24/18 01:14 Review of Systems Review of Systems Constitutional: No fever, No chills Eyes: No double vision Neurological: No dizzy Endocrine: No excessive thirst Gastrointestinal: + abdominal pain (RLQ), No nausea, No vomiting Cardiovascular: No chest pain Respiratory: No shortness of breath Skin: No rash Musculoskeletal: + back pain (right low back and flank ) Female : + kidney stones, No painful urination, No blood in urine Physical Exam Vital Signs: Vital Signs Past 12 Hours Date Time Temp Pulse Resp B/P (MAP) Pulse Ox O2 Delivery O2 Flow Rate FiO2 03/24/17 00:15 Room Air 03/23/17 22:10 36.6 78 17 114/71 (85) 100 Room Air 03/23/17 21:56 Room Air 03/23/17 21:06 105 16 114/58 100 Room Air Physical Exam: General Appearance: no apparent distress Eyes: bilateral eyes normal inspection ENT: hearing grossly normal Neck: no JVD Respiratory/Chest: no respiratory distress, no accessory muscle use Cardiovascular: no JVD Extremities: normal inspection Neurologic/Psychiatric: alert, normal mood/affect, oriented x 3 Skin: normal color Assessment & Plan Assessment & Plan A/P: 7mm distal right ureteral stone AFVSS. Will attempt a trial of passage and supportive management today with IVF, Flomax , and pain control. Will tentatively plan for right ESWL as an outpatient at the surgery center this Wednesday if stone visible on KUB. Avoid Toradol or other NSAIDs for now. Will provide her a diet today. NPO after midnight in the event she needs stent placement for intractable pain tomorrow. Strain all urine. Encourage fluids. Will send a UC&S. Will check a pre-op chest x-ray and EKG. Thanks for the consult. Will continue to follow along with primary service.
[2017-03-24 07:49] VITALS: BP 116/72; PULSE 86; TEMP 36.8; O2SAT 97
[2017-03-24 08:11] VITALS: O2SAT 97
[2017-03-24] MEDS: TAMSULOSIN HCL 0.4 MG CAP PO SCH (09:16)
[2017-03-24] MEDS: PRENATAL VITAMIN TAB PO SCH (09:16)
[2017-03-24] MEDS: D5NSS + 20MEQ KCL 1,000 ML IV SCH ×2 (09:58→19:55)
[2017-03-24 11:45] VITALS: BP 118/76; PULSE 90; TEMP 36.6; O2SAT 97
[2017-03-24 15:25] VITALS: BP 114/75; PULSE 72; TEMP 36.4; O2SAT 99
--- NOTE | 2017-03-24 18:29 | Progress Note ---
Internal Med Progress Note Date of Service: Mar 24, 2017. Provider Documentation: SUBJECTIVE: feels much better , mild rt flank pain on activity no nausea , no fever or chills not able to pass renal stone yet OBJECTIVE: Vital Signs-as noted below Exam: General-young female , well appearing no sign of distress Eyes-sclera ,non icteric, PERRLA/EOMI ENT-moist oral mucosa, normal oropharynx Neck-trachea midline , no thyromegaly Lungs-CTA , no wheeze or rales Heart-regular S1/S2 Abdomen-soft, + rt CVA tenderness + Extremities-no rash or deformity Neuro-AAO x3, no focal neurological deficit Lab data as noted below. ASSESSMENT & PLAN: RT SIDED URETERIC STONE : hx of Prior renal stone , ESWL presents with sever rt sided renal colic CT abdomen /pelvis : 1. 7 mm distal right ureteral calculus which results in severe right hydroureteronephrosis. 2. 2 mm right renal calculus. normal renal function , no fever or chills no evidence of infection Flank pain improved today , continued with IV fluid appreciate Urology eval added Flomax , Toradol ordered for KUB of abdomen tomorrow if no spontaneous passage of stone overnight, will need Urologic procedure with ureteric stent placement tomorrow ordered for NPO past midnight DVT PROPHYLAXIS low risk scd and teds ambulate DISPOSITION expected to be discharged home when medically stable Urology follow up with Dr Dickerson Vital Signs: Date Time Temp Pulse Resp B/P (MAP) Pulse Ox O2 Delivery O2 Flow Rate FiO2 03/24/17 15:45 Room Air 03/24/17 15:25 36.4 72 16 114/75 (88) 99 Room Air 03/24/17 11:45 36.6 90 18 118/76 (90) 97 Room Air 03/24/17 08:11 97 Room Air 03/24/17 08:00 Room Air 03/24/17 07:49 36.8 86 20 116/72 (87) 97 Room Air 03/24/17 00:15 Room Air 03/23/17 22:10 36.6 78 17 114/71 (85) 100 Room Air 03/23/17 21:56 Room Air 03/23/17 21:06 105 16 114/58 100 Room Air Lab Results: Results Past 24 Hours Test 03/24/17 20:47 Range/Units Microbiology Results 03/24/17 Urine Culture, Received Pending
[2017-03-24 21:53] LABS: PROTHROMBIN TIME (PATIENT) 10.6 SECONDS (9.0-12.0)
[2017-03-24 23:35] VITALS: BP 127/77; PULSE 85; TEMP 36.9; O2SAT 95
[2017-03-25] MEDS: D5NSS + 20MEQ KCL 1,000 ML IV SCH (04:23)
[2017-03-25 06:58] LABS: BASO % 0.6 %; BASO ABS # 0.03 K/uL (0-0.2); COMPLETE YES; EOS % 2.7 %; HEMATOCRIT 38.2 % (37-47); IG% 0.2 %; LYMPH % 28.4 %; LYMPH ABS # 1.49 K/uL (1.2-3.4); MEAN CELL VOLUME 86.4 fL (80-100); MEAN CORPUSCULAR HEMOGLOBIN 29.2 pg (25-34); MEAN CORPUSCULAR HGB CONC 33.8 g/dl (32-36); MEAN PLATELET VOLUME 11.8 fL (7.4-10.4); MONO % 6.7 %; NEUT % 61.4 %; PLATELET COUNT 173 K/uL (130-400); RED BLOOD COUNT 4.42 M/uL (4.2-5.4); WHITE BLOOD COUNT 5.24 K/uL (4.8-10.8)
--- NOTE | 2017-03-25 06:59 | Progress Note ---
Subjective Date of Service: Mar 25, 2017. Subjective Pt evaluation today including: conversation w/ patient, chart review, lab review Voiding: no voiding problems 22 yo female with distal right ureteral stone. Pt continues to have some mild RLQ abdominal discomfort, but overall feels better. Denies passing any stones overnight. Denies dysuria or hematuria. Denies n/v. Labs pending. UC&S pending. KUB pending this morning. Problem List Medical Problems: (1) Hydroureteronephrosis Status: Acute (2) Right ureteral calculus Status: Acute Review of Systems Constitutional: No fever, No chills Respiratory: No shortness of breath Cardiac: No chest pain Abdomen: + see HPI, + pain (RLQ), No nausea, No vomiting Female : No dysuria, No hematuria Heme: No abnormal bleeding/bruising Objective Vital Signs Date Time Temp Pulse Resp B/P (MAP) Pulse Ox O2 Delivery O2 Flow Rate FiO2 03/24/17 23:35 36.9 85 16 127/77 (94) 95 Room Air 03/24/17 15:45 Room Air 03/24/17 15:25 36.4 72 16 114/75 (88) 99 Room Air 03/24/17 11:45 36.6 90 18 118/76 (90) 97 Room Air 03/24/17 11:35 Room Air 03/24/17 08:11 97 Room Air 03/24/17 08:00 Room Air 03/24/17 07:49 36.8 86 20 116/72 (87) 97 Room Air Physical Exam General Appearance: no apparent distress Eyes: normal inspection ENT: hearing grossly normal Neck: no JVD Respiratory/Chest: lungs clear, normal breath sounds, no respiratory distress, no accessory muscle use Cardiovascular: regular rate, rhythm, no JVD Abdomen: non tender, + pertinent finding (no HSM; bowel sounds present all 4 quadrants) Extremities: normal inspection Neurologic/Psychiatric: alert, normal mood/affect, oriented x 3 Skin: normal color Laboratory Results Last 24 Hours Test 03/24/17 21:38 03/25/17 06:50 Prothrombin Time 10.6 SECONDS Prothromb Time International Ratio 1.0 Assessment and Plan A/P: 7mm distal right ureteral stone AFVSS. Pain improved. Will avoid stent placement today, and provide the pt a diet. Plan for right ESWL as an outpatient tomorrow at the surgery center. KUB pending this AM to check stone visibility. Pre-op chest x-ray pending as well. Pt OK for d/c home today. Will d/c home on 3 days of Cipro, Flomax, and Colace, and Percocet. She is to f/u in our office today immediately after discharge. Thanks for allowing us to participate in this pt's care.
[2017-03-25] MEDS ORDERED: FLM4 PO (07:02)
[2017-03-25] MEDS ORDERED: CIPR1TAB10 PO (07:02)
[2017-03-25] MEDS ORDERED: OXYC-57 PO ×2 (07:02→10:24)
[2017-03-25] MEDS ORDERED: ONDA4TAB65 PO (07:02)
[2017-03-25] MEDS ORDERED: DOCU-94 PO ×2 (07:02→10:24)
--- NOTE | 2017-03-25 07:06 | Discharge Instructions ---
Discharge Instructions Date of Service Mar 25, 2017. Admission Reason for Admission: Renal Colic Discharge Discharge Diagnosis / Problem: Right ureteral stone Discharge Goals Goal(s): Decrease discomfort, Therapeutic intervention Activity Recommendations Activity Limitations: as noted below Lifting Limitations: none Exercise/Sports Limitations: rest today, gradually increase as tolerated May Resume Sexual Activity: when tolerated Shower/Bathe: no limitations Driving or Machine Use: no limitations (Do not drive while taking narcotics. ) . Instructions / Follow-Up Instructions / Follow-Up 1. You have been prescribed the antibiotic Ciprofloxacin. Finish all as directed. 2. Follow-up in our office at [address] [place] [address] immediately after discharge. Please ask for [place] upon arrival. 3. Return to ER for fever >101.5F or severe intractable pain or vomiting. Current Hospital Diet Patient's current hospital diet: Regular Diet Discharge Diet Recommended Diet: Regular Diet Pending Studies Studies pending at discharge: yes (urine culture) List of pending studies: urine culture Medical Emergencies . Who to Call and When: Medical Emergencies: If at any time you feel your situation is an emergency, please call 911 immediately. . Non-Emergent Contact Non-Emergency issues call your: Urologist Call Non-Emergent contact if: temperature is above 101.5, your pain is not controlled, your pain is worsening, your pain is unusual for you, your pain is concerning you, you have any medication questions . . "Provider Documentation" section prepared by Celine Nath. . VTE Core Measure Inpt VTE Proph given/why not?: SCD's [place] Drug Monitoring Program Search Results: patient reviewed within database, no issues identified
[2017-03-25 07:41] VITALS: BP 122/76; PULSE 81; TEMP 36.5; O2SAT 99
[2017-03-25 07:51] LABS: BUN/CREATININE RATIO 6.1 (10-20); CALCIUM 8.2 mg/dl (8.5-10.1); CREATININE 0.73 mg/dl (0.60-1.20)
--- NOTE | 2017-03-25 08:47 | DIAGNOSTIC IMAGING REPORT ---
CHEST 2 VIEWS ROUTINE CLINICAL HISTORY: pre-op preoperative COMPARISON STUDY: 11/22/2013 FINDINGS: The bones soft tissues and hemidiaphragms are normal. The cardiomediastinal silhouette is normal. The lungs are clear. The pulmonary vasculature is normal. IMPRESSION: Negative chest. The above report was generated using voice recognition software. It may contain grammatical, syntax or spelling errors. Electronically signed by: Dimas Mota M.D. 03/25/2017 8:45 AM Dictated Date/Time: 03/25/2017 8:45 AM
--- NOTE | 2017-03-25 08:50 | DIAGNOSTIC IMAGING REPORT ---
KUB CLINICAL HISTORY: Ureteral stone. FINDINGS: 3 AP supine abdominal radiographs are compared to study dated 02/14/2014 and correlated with abdominal CT dated 03/23/2017. There is a nonobstructed abdominal bowel gas pattern noting moderate colonic fecal retention. A 5 mm calculus is again seen just above the right vesicoureteral junction. No additional calcifications are identified projecting over either kidney or along the course of left ureter. A left pelvic phlebolith is similar to previous. The bony structures appear intact. IMPRESSION: 1. Again seen is a 5 mm obstructing calculus in the distal right ureter just above the right vesicoureteral junction. 2. No additional calculi are seen projecting over either kidney. Electronically signed by: Santy Stallings M.D. 03/25/2017 8:49 AM Dictated Date/Time: 03/25/2017 8:46 AM
[2017-03-25] MEDS: TAMSULOSIN HCL 0.4 MG CAP PO SCH (09:15)
[2017-03-25] MEDS: PRENATAL VITAMIN TAB PO SCH (09:15)
[2017-03-25] MEDS ORDERED: PRENTAB26 PO (09:50)
[2017-03-25] MEDS ORDERED: TAMS0.4C38 PO ×2 (09:50→10:25)
[2017-03-25] MEDS ORDERED: VNTHFA/IN INH (09:52)
[2017-03-25] MEDS ORDERED: CPR500 PO (10:24)
[2017-03-25] MEDS ORDERED: CIPROFLOXACIN 500 MG TAB PO ONE (10:30)
--- NOTE | 2017-03-25 10:38 | Discharge Summary ---
Discharge Summary Date of Service Mar 25, 2017. Discharge Summary Admission Date: Mar 23, 2017 at 21:50 Discharge Date: Mar 25, 2017 Discharge Disposition: Home Principal Diagnosis: Right ureteral stone Procedures: CT ABDOMEN/PELVIS WITHOUT CONTRAST : IMPRESSION: 1. 7 mm distal right ureteral calculus which results in severe right hydroureteronephrosis. 2. 2 mm right renal calculus. XRAY OF KUB : 03/25/17 : 5 mm rt sided distal ureteral stone projecting on rt vesicoureteral junction Consultations: UROLOGY -[facility] Medication Reconciliation New Medications: Ciprofloxacin (Ciprofloxacin HCl) 500 Mg Tab 1 TAB PO BID for 3 Days, #6 TAB Docusate Sodium (Colace) 100 Mg Cap 1 CAP PO BID for 15 Days, #30 CAP over the counter Oxycodone/Acetaminophen 5MG/325MG (Percocet 5MG/325MG) Tab 1 TABLET PO Q8 PRN for Pain, #10 TAB Continued Medications: Albuterol Hfa (Ventolin Hfa) 200 Puffs/92074 Mcg Aers 2-4 PUFFS INH Q6H PRN for SOB/Wheezing Albuterol Sulfate (Proair Respiclick) 108 Mcg/Act Aer 2 PUFFS INH UD PRN for Shortness of Breath Multivit/Min/Iron/Fol Ac/Pren ( Vitamin) Tab 1 TAB PO DAILY, TAB Multivit/Min/Iron/Fol Ac/Pren ( Vitamin) Tab 1 TAB PO QAM Tamsulosin Hcl (Flomax) 0.4 Mg Cap 0.4 MG PO QAM for 5 Days, #5 TABS (This prescription has been renewed) Referrals At Discharge Follow up Referrals: Physician Referral - 03/31/17 with Rachel Ludwig D.O. Admission Information HPI (per Admitting provider): DATE OF ADMISSION: 03/23/2017 PCP: Dr. Ruffin CHIEF COMPLAINT: Right flank pain. HISTORY OF PRESENT ILLNESS: History obtained from the patient and records. Medical history significant for urolithiasis, asthma. One day history of achy right lower quadrant and right flank pain going to the groin, similar to kidney stone pain. Some nausea, no vomiting. No chest pain, no shortness of breath, no fever, no chills, no hematuria. Loose stools as per the patient. Intractable pain in the Emergency Room. MEDICAL HISTORY: As above. SURGERIES: She has had lithotripsy, adenoidectomy, tympanostomy tube placement. HOME MEDICATIONS: Include vitamins, albuterol p.r.n., docusate sodium. FAMILY HISTORY: Hypertension. PERSONAL SOCIAL HISTORY: Nonsmoker, no chronic intake of alcoholic beverages. specialty clinic employee. REVIEW OF SYSTEMS: As per HPI. All 10 systems reviewed. All other ROS negative. Physical Exam (per Admitting): PHYSICAL EXAMINATION: VITAL SIGNS: Blood pressure noted to be 114/58, pulse rate 105, RR 16, temperature 37, sats 100% on room air. GENERAL: Noted to be uncomfortable, obese, no respiratory distress. SKIN: Normal color, warm. HEENT: [place] palpebral conjuctivae. No ptosis. Dry buccal mucosa. NECK: Short neck. No tenderness. CHEST: Clear to auscultation, no tenderness. HEART: tachycardic. No murmur. ABDOMEN: Right sided abdominal tenderness, some distention. EXTREMITIES: No edema, no tenderness. No gross deformity. NEUROLOGIC: Coherent. No gross focality. Hospital Course RT SIDED URETERIC STONE : hx of Prior renal stone , ESWL presents with sever rt sided renal colic CT abdomen /pelvis : 1. 7 mm distal right ureteral calculus which results in severe right hydroureteronephrosis. 2. 2 mm right renal calculus. normal renal function , no fever or chills no evidence of infection Flank pain improved ON Flomax KUB of abdomen : XRAY OF KUB : 03/25/17 : 5 mm rt sided distal ureteral stone projecting on rt vesicoureteral junction appreciate Urology eval pt is stable to be discharged home today minimum flank pain , no fever , chills Plan for right ESWL as an outpatient tomorrow at the surgery center. pt will be discharged home today script given for 3 days of Cipro, Flomax, and Colace, and Percocet. DVT PROPHYLAXIS low risk scd and teds ambulate DISPOSITION Discharge pt home today Urology follow up with Dr Dickerson scheduled for [facility]SWL [place] [facility] [place] Discharge Instructions Discharge Instructions Date of Service Mar 25, 2017. Admission Reason for Admission: Renal Colic Discharge Discharge Diagnosis / Problem: Right ureteral stone Discharge Goals Goal(s): Decrease discomfort, Therapeutic intervention Activity Recommendations Activity Limitations: as noted below Lifting Limitations: none Exercise/Sports Limitations: rest today, gradually increase as tolerated May Resume Sexual Activity: when tolerated Shower/Bathe: no limitations Driving or Machine Use: no limitations (Do not drive while taking narcotics. ) . Instructions / Follow-Up Instructions / Follow-Up 1. You have been prescribed the antibiotic Ciprofloxacin. Finish all as directed. 2. Follow-up in our office at [address] [place] [address] immediately after discharge. Please ask for [place] upon arrival. 3. Return to ER for fever >101.5F or severe intractable pain or vomiting. Current Hospital Diet Patient's current hospital diet: Regular Diet Discharge Diet Recommended Diet: Regular Diet Pending Studies Studies pending at discharge: yes (urine culture) List of pending studies: urine culture Medical Emergencies . Who to Call and When: Medical Emergencies: If at any time you feel your situation is an emergency, please call 911 immediately. . Non-Emergent Contact Non-Emergency issues call your: Urologist Call Non-Emergent contact if: temperature is above 101.5, your pain is not controlled, your pain is worsening, your pain is unusual for you, your pain is concerning you, you have any medication questions . . "Provider Documentation" section prepared by Celine Nath. . VTE Core Measure Inpt VTE Proph given/why not?: SCD's [place] Drug Monitoring Program Search Results: patient reviewed within database, no issues identified Addendum: Ny Silvestre M.D. on 03/25/17 @ 10:30 Discharge Inst - Addendum Addendum Notes: HOSPITAL FOLLOW UP : 03/31/2017 1:00 PM Rachel Ludwig DO [facility] Addendum Provider: Addendum Notes were documented by provider Ny Silvestre. Additional Copies To Rachel Ludwig D.O.
[2017-03-25 10:44] VITALS: BP 122/76; PULSE 81; TEMP 36.5; O2SAT 99
[2017-03-25] MEDS ORDERED: zofran PO (12:32)
== END 2017-03-25 12:48 | disposition home or self-care (01) ==
LOC: C.EDB 19:04 → EDBEDREQ 21:38 → ENRESERV 21:41 → C.MSW 21:50
PROVIDERS: ADMIT Internal Medicine; ATTEND Hospitalist
DX: N13.2 Hydronephrosis with renal and ureteral calculous obstruction (principal); R19.7 Diarrhea, unspecified; J45.909 Unspecified asthma, uncomplicated; Z87.442 Personal history of urinary calculi; Z82.49 Family history of ischemic heart disease and other diseases of the circulatory system

== ENCOUNTER → 2017-03-26 | Day surgery (SDC) | payer OTHER, BC ==
--- NOTE | 2017-03-25 07:17 | [facility] History and Physical ---
History General Date of Service: Mar 25, 2017. Chief Complaint: RLQ abdominal pain Primary Care Physician: Perla Ruffin D.O. Pt seen a urologist before?: Yes ([facility]) If yes, why?: nephrolithiasis History of Present Illness 22 yo female with a hx of nephrolithiasis presenting this week to [facility] with c/o right flank pain. Found to have a 7mm distal right ureteral stone on CT. She has a hx of nephrolithiasis requiring ESWL in the past. She was admitted to [facility] for 2 days. Pain improved with supportive management, and planning for discharge today without the need for urgent surgical intervention. Pt c/o RLQ abdominal discomfort this morning, but otherwise denies any n/v, dysuria, or hematuria. Labs and UC&S pending this AM. KUB pending as well. Imaging Imaging: CT, KUB Laboratory Labs were reviewed and are within normal limits unless listed below. Labs are available in the chart and at [facility] Past History Past Medical History: kidney stones Past Surgical History: adenoidectomy, lithotripsy, other (tympanostomy tube placement ) Family History hypertension Social History Hx Tobacco Use In Past Year?: No Smoking Status: Never Smoker Alcohol: other (no chronic intake) Marital status: single Housing status: lives with family Occupation status: employed Immunizations History of Influenza Vaccine: N/A History of Tetanus Vaccine?: Unknown History of MDRO No Allergies Coded Allergies: Phenazopyridine (Verified Allergy, Intermediate, SHORTNESS OF BREATH, 10/27) Cephalexin (Verified Allergy, Unknown, HIVES/ THROAT SWELLING, 10/27/16) Medications Home Medications: Home Meds and Scripts Medications Dose Route/Sig Max Daily Dose Days Date Category Zofran (Ondansetron Hcl) 4 Mg Tab 1 Tab PO Q4H PRN 3 03/25/17 Rx Percocet 5MG/325MG (Oxycodone/Acetaminophen) Tab 1-2 Tablets PO Q4H PRN 03/25/17 Rx Tamsulosin HCl 0.4 Mg Cap 0.4 Mg PO HS 03/25/17 Rx Colace (Docusate Sodium) 100 Mg Cap 1 Cap PO BID PRN 15 03/25/17 Rx Cipro (Ciprofloxacin Hcl) 500 Mg Tab 500 Mg PO BID 03/25/17 Rx Proair Respiclick (Albuterol Sulfate) 108 Mcg/Act Aer 2 Puffs INH UD PRN 03/23/17 Reported Vitamin (Prenat Multivit/Identification Technician/Iron/Folic Ac) Tab 1 Tab PO DAILY 09/17/11 Reported Review of Systems Review of Systems Constitutional: No fever, No chills Eyes: No double vision Neurological: No dizzy Endocrine: No excessive thirst Gastrointestinal: + abdominal pain (RLQ ), No nausea, No vomiting Cardiovascular: No chest pain Respiratory: No shortness of breath Skin: No rash Musculoskeletal: No back pain Female : + kidney stones, No painful urination, No blood in urine Physical Exam Physical Exam: General Appearance: no apparent distress Eyes: bilateral eyes normal inspection ENT: hearing grossly normal Neck: supple, thyroid normal, no JVD Respiratory/Chest: lungs clear, normal breath sounds, no respiratory distress, no accessory muscle use Cardiovascular: regular rate, rhythm, no JVD Gastrointestinal: Abdomen: normal abdomen, pertinent finding (non-tender, abdominal sounds present all 4 quadrants) Liver: normal liver Spleen: normal spleen Extremities: normal inspection Neurologic/Psychiatric: alert, normal mood/affect, oriented x 3 Skin: normal color Assessment & Plan Assessment & Plan Treatment Planned: ESWL Assessment & Plan: A/P: 7mm distal right ureteral stone Will plan for right ESWL tomorrow. Risks and benefits of the procedure discussed with the pt. All questions answered. Pt agrees to the procedure at this time. Will obtain pre-op KUB and chest x-ray. Pre-op EKG performed. Pre-op UC&S pending. She will be placed on 3 days of Cipro empirically. She has been provided prescriptions for Colace, Percocet, Flomax, Zofran, and Cipro upon discharge from [facility].
[2017-03-25 09:50] VITALS: Ht 160 cm; Wt 78.6 kg
[~2017-03-26] VITALS: Ht 160 cm; Wt 78.6 kg
[~2017-03-26] MED LIST changes: +ACETAMINOPHEN 325 MG TAB PO PRN; +ALBU18002 INH; -ALBU1AER9 INH; +ATROPINE SULFATE 0.1 MG/ML 5ML SYR IV PRN; +CIPROFLOXACIN 400MG / D5W IV SCH; +CPR500 PO; +DEXAMETHASONE SOD INJ 4 MG/ML VIAL ONE; +DOCU-94 PO; +FENTANYL CITRATE INJ 50 MCG/1 ML 2 ML VIAL IV PRN; +FENTANYL CITRATE INJ 50 MCG/1 ML 2 ML VIAL ONE; +LACTATED RINGER'S 1000ML 1,000 ML IV SCH; +LIDOCAINE HCL 2% 2 ML VIAL (20MG/ML) ONE; +MIDAZOLAM HCL 1 MG/ML 2ML VIAL ONE; +ONDANSETRON INJ 2 MG/ML 2 ML VIAL IV PRN; +ONDANSETRON INJ 2 MG/ML 2 ML VIAL ONE; +OXYCODONE/ACETAMINOPHEN 5-325 TAB PO PRN; +PRENTAB26 PO; +PROPOFOL IV EMULSION 10 MG/ML 20 ML VIAL IV ONE; +SODIUM CHLORIDE 0.9% 1000ML 1,000 ML IV SCH; +TAMS0.4C38 PO; +VNTHFA/IN INH; +zofran PO
--- NOTE | 2017-03-26 13:03 | History & Physical Bridge Note ---
H&P Re-Evaluation Bridge Note: I have examined the patient, reviewed the History & Physical and in the interval since the performance of the History & Physical I have noted the following changes of clinical significance: No changes noted
--- NOTE | 2017-03-26 13:26 | Discharge Instructions-SurgCtr ---
Discharge Instructions Date of Service Mar 26, 2017. Visit Reason for Visit: Stones Discharge Discharge Diagnosis / Problem: stones Discharge Goals Goal(s): Decrease discomfort, Improve function, Increase independence, Improve disease control Activity Recommendations Activity Limitations: resume your previous activity Lifting Limitations: none Exercise/Sports Limitations: none May Resume Sexual Activity: when tolerated Shower/Bathe: no limitations Driving or Machine Use: no limitations Anesthesia . Post Anesthesia Instructions: If you have had General Anesthesia or IV Sedation: * Do not drive today. * Resume driving when surgeon permits. * Do not make important decisions or sign legal documents today. * Call surgeon for: 1. Temperature elevations greater than 101 degrees F. 2. Uncontrollable pain. 3. Excessive bleeding. 4. Persistent nausea and vomiting. 5. Medication intolerance (nausea, vomiting or rash). * For nausea and vomiting use only clear liquids such as: tea, soda, bouillon until nausea subsides, then gradually increase diet as tolerated. * If you have any concerns or questions, call your surgeon's office. If physician is unavailable and it is an emergency, call 911 or go to the nearest emergency room. . Instructions / Follow-Up Instructions / Follow-Up please keep your previously scheduled follow up appointment Diet Recommendations Home Diet: no limitations, resume previous diet Pending Studies Studies pending at discharge: no Medical Emergencies . Who to Call and When: Medical Emergencies: If at any time you feel your situation is an emergency, please call 911 immediately. . Non-Emergent Contact Non-Emergency issues call your: Urologist Call Non-Emergent contact if: you have a fever, temperature is above 101.5, your pain is not controlled, your pain is worsening . . "Provider Documentation" section prepared by Reji Hoyt. .
--- NOTE | 2017-03-26 13:31 | [facility] Operative Report ---
Operative Report Operative Date Mar 26, 2017. Pre-Operative Diagnosis Right Ureteral Stone Post-Operative Diagnosis Same Procedure(s) Performed Right Extracorporeal Shock Wave Lithotripsy Surgeon Dr. Bryan Dickerson Paper Reel Operator Surgeon(s) None Estimated Blood Loss 0 mL Findings Right ureteral calculus Specimens None Drains none Anesthesia Gen. Complication(s) None Disposition Recovery Room / PACU Indications Right ureteral calculus Description of Procedure The patient was identified in the preoperative holding area, appropriate informed consent was reviewed and completed and the patient was transported to the operating suite. Upon arrival appropriate preoperative antibiotics were administered and general anesthesia induced. The patient was placed in supine position and the stone was localized under fluoroscopy. A total of 3000 shocks were delivered to the stone. There appeared to be good fragmentation of the stone. Details of this procedure can be found on the [facility] information sheet. At the conclusion of the case the patient was extubated and taken to the PACU in stable condition. There were no complications. I attest to the content of the Intraoperative Record and any orders documented therein. Any exceptions are noted below.
[2017-03-26 14:36] VITALS: TEMP 36.5
--- NOTE | 2017-03-26 14:49 | Anesthesia Progress Nt - [facility] ---
Anesthesia Post Op Note Date & Time Mar 26, 2017 at 14:49 Vital Signs Pain Intensity: 2 Vital Signs Past 12 Hours Date Time Temp Pulse Resp B/P (MAP) Pulse Ox O2 Delivery O2 Flow Rate FiO2 03/26/17 14:32 72 13 03/26/17 14:32 75 13 98 03/26/17 14:31 110/75 03/26/17 14:31 36.6 69 16 110/75 100 Room Air 03/26/17 14:27 74 20 111/71 100 03/26/17 14:27 75 20 03/26/17 14:22 96 19 /67 99 03/26/17 14:22 91 19 03/26/17 14:17 65 26 03/26/17 14:17 65 26 100 03/26/17 14:16 104/61 03/26/17 14:12 62 19 03/26/17 14:12 61 19 100 03/26/17 14:11 116/57 03/26/17 14:07 77 17 03/26/17 14:07 77 17 100 03/26/17 14:06 100/65 03/26/17 14:05 60 9 03/26/17 14:05 58 9 100 03/26/17 14:01 99/66 03/26/17 14:00 74 100 03/26/17 14:00 74 03/26/17 14:00 36.5 70 16 99/66 100 Diffusion Mask 6 03/26/17 11:41 36.7 98 16 119/82 (94) 96 Room Air Notes Mental Status: alert / awake / arousable, participated in evaluation Pt Amnestic to Procedure: Yes Nausea / Vomiting: adequately controlled Pain: adequately controlled Airway Patency, RR, SpO2: stable & adequate BP & HR: stable & adequate Hydration State: stable & adequate Anesthetic Complications: no major complications apparent
[2017-03-26 15:04] VITALS: BP 117/78; PULSE 58; O2SAT 99
== END | disposition home or self-care (01) ==
LOC: X.SURG 11:13
PROVIDERS: ATTEND Urology
DX: N20.1 Calculus of ureter (principal); J45.909 Unspecified asthma, uncomplicated; Z90.89 Acquired absence of other organs; Z82.49 Family history of ischemic heart disease and other diseases of the circulatory system

== ENCOUNTER → 2017-04-06 | Outpatient (CLI) | payer OTHER, BC ==
[~2017-04-06] MED LIST changes: -ACETAMINOPHEN 325 MG TAB PO PRN; -ATROPINE SULFATE 0.1 MG/ML 5ML SYR IV PRN; -CIPROFLOXACIN 400MG / D5W IV SCH; -DEXAMETHASONE SOD INJ 4 MG/ML VIAL ONE; -FENTANYL CITRATE INJ 50 MCG/1 ML 2 ML VIAL IV PRN; -FENTANYL CITRATE INJ 50 MCG/1 ML 2 ML VIAL ONE; -LACTATED RINGER'S 1000ML 1,000 ML IV SCH; -LIDOCAINE HCL 2% 2 ML VIAL (20MG/ML) ONE; -MIDAZOLAM HCL 1 MG/ML 2ML VIAL ONE; -ONDANSETRON INJ 2 MG/ML 2 ML VIAL IV PRN; -ONDANSETRON INJ 2 MG/ML 2 ML VIAL ONE; -OXYCODONE/ACETAMINOPHEN 5-325 TAB PO PRN; -PROPOFOL IV EMULSION 10 MG/ML 20 ML VIAL IV ONE; -SODIUM CHLORIDE 0.9% 1000ML 1,000 ML IV SCH
--- NOTE | 2017-04-06 14:22 | DIAGNOSTIC IMAGING REPORT ---
KUB CLINICAL HISTORY: 22 years-old Female presenting with NEPHROLITHIASIS. TECHNIQUE: Single supine view of the abdomen was obtained. COMPARISON: 03/25/[address] from 03/23/2017. FINDINGS: Moderate stool burden in the right colon. No bowel obstruction. No gross pneumoperitoneum. There has been interval passage of the distal right ureteral calculus. Right pelvic phlebolith again noted, unchanged. No radiographically apparent renal calculus. Osseous structures normal. IMPRESSION: 1. Interval passage of the distal right ureteral calculus. No radiographically apparent renal calculus. Electronically signed by: Bony Carreon M.D. 04/06/2017 2:21 PM Dictated Date/Time: 04/06/2017 2:18 PM
== END | disposition home or self-care (01) ==
LOC: C.RAD 14:00
PROVIDERS: ATTEND Nurse Practitioner Adult Health
DX: N20.1 Calculus of ureter (principal)

== ENCOUNTER → 2017-04-06 | Outpatient (CLI) | payer OTHER, BC | END | disposition home or self-care (01) | LOC: C.LABSPEC 10:46 | PROVIDERS: ATTEND Urology | DX: N20.0 Calculus of kidney (principal) ==

== ENCOUNTER 2019-12-16 04:50 | Inpatient (IN) ==
[2019-12-16] MEDS ORDERED: PENICILLIN G POTASSIUM 3 MU in DEXTROSE 5% 100 ML IV PRN (05:22)
[2019-12-16] MEDS ORDERED: OXYTOCIN 30 UNITS/500 ML BAG IV PRN ×2 (05:22→10:08)
[2019-12-16] MEDS ORDERED: LACTATED RINGER'S 1,000 ML IV PRN (05:22)
[2019-12-16] MEDS ORDERED: BUPIVACAINE 0.25% 30 ML VIAL ONE (05:27)
[2019-12-16] MEDS ORDERED: fentaNYL citrate 100 MCG/2 ML VIAL ONE (05:27)
[2019-12-16] MEDS ORDERED: ePHEDrine sulfate 50 MG/ML AMP ONE (05:27)
--- NOTE | 2019-12-16 05:27 | History & Physical Report ---
Date of Service December 16, 2019 Assessment & Plan (1) Encounter for supervision of normal in multigravida, antepartum: Admit to L&D. Labs, EFM, Runge. IV. Desires epidural. History of Present Illness Chief Complaint: labor Primary Care Provider: Rachel Ludwig DO 24yo @ 40 06/16 presents with ctx. No leaking of fluid, vaginal bleeding. + movement. complicated by GBS+ Allergies Allergy/AdvReac Type Severity Reaction Status Date / Time phenazopyridine Allergy Intermediate SHORTNESS Verified 12/14/19 15:32 OF BREATH cephalexin Allergy Unknown HIVES/ Verified 12/14/19 15:32 THROAT SWELLING Home Medications Home Medications Medication Instructions Recorded Confirmed Type PNV cmb#95-ferrous fumarate-FA 1 tab PO DAILY 02/09/19 12/16/19 History [] escitalopram oxalate 10 mg tablet 10 mg PO DAILY 09/22/19 12/16/19 History Patient History Medical History Anxiety Asthma Encounter for anatomic survey Migraine headache Miliaria Nephrolithiasis Renal colic Supervision of normal intrauterine in multigravida in third trimester Uterine cramping Varicella vaccine Surgical History H/O lithotripsy H/O oral surgery S/P colonoscopy S/P tonsillectomy and adenoidectomy Family History Grandmother (Maternal) Breast cancer Diabetes Other No pertinent family history in first degree relatives Social History Smoking Status: Never smoker Hx Alcohol Use: No Hx Substance Use: No Preferred Language: Turkmen Communication Ability: Effective Hydraulic Boom Operator Required: No Beliefs That Will Affect Care: None marital status: Single marital status details: Anderson Wilder(25) [phone] Current Living Situation: Family and Significant Other Current Living Situation Comment: 2 daughters and boyfriend. current occupational status: employed current occupation: [employer], admin assist Feels Safe at Home: Yes Review of Systems All systems reviewed & are unremarkable except as noted in HPI & below Physical Exam Physical Exam: Cervix 5/90/-1 Cat 1, Q 2 min Constitutional: WD/WN, vitals as above Respiratory: normal respiratory effort, lungs clear to auscultation no respiratory distress Cardiovascular: Rate/Rhythm: regular rate and regular rhythm Gastrointestinal (Abdomen): Inspection/Auscultation: abdomen normal to inspection Percussion/Palpation: abdomen soft; abdomen nontender Gravid. No s/s chorio or abruption. Skin: no rashes, warm and dry Psychiatric: A+Ox3, euthymic affect Results & Data ([facility]) Vital Signs (Past 12 Hours) Vital Signs Temp Pulse Resp BP 12/16/19 05:10 96 H 130/72 12/16/19 05:06 36.6 C 18 Coding Level of Care Code None Diagnoses Encounter for supervision of normal in multigravida, antepartum Z34.80
[2019-12-16] MEDS ORDERED: fentaNYL 2MCG/ML ROPIV 1.25MG/ML 100 ML BAG EPI ONE (05:28)
[2019-12-16] MEDS ORDERED: PENICILLIN G POTASSIUM 6 MU in DEXTROSE 5% 250 ML IV ONE (05:45)
[2019-12-16 05:57] LABS: Hemoglobin 11.1 g/dL (12.0-16.0); Mean Corpuscular Hemoglobin 26.7 pg (25-34); Mean Corpuscular Volume 81.9 fL (80-100); Mean Platelet Volume 13.1 fL (7.4-10.4); Platelet Count 160 K/uL (130-400); RDW Standard Deviation 42.1 fL (36.4-46.3); Red Blood Count 4.15 M/uL (4.2-5.4); White Blood Count 13.58 K/uL (4.8-10.8)
[2019-12-16 06:11] LABS: Mean Corpuscular Hgb Conc 32.6 g/dL (32-36)
[2019-12-16] MEDS ORDERED: PROMETHAZINE HCL 6.25 MG in SODIUM CHLORIDE 0.9% 50 ML IV PRN (06:19)
[2019-12-16] MEDS ORDERED: ONDANSETRON INJ 2 MG/ML 2 ML VIAL IV PRN (06:19)
[2019-12-16] MEDS ORDERED: fentaNYL 2MCG/ML ROPIV 1.25MG/ML 100 ML BAG EPI PRN (06:19)
[2019-12-16] MEDS ORDERED: NALOXONE HCL 0.4 MG/1 ML VIAL/CARP IV PRN (06:19)
[2019-12-16] MEDS ORDERED: DiphenhydrAMINE HCL 50 MG/ML VIAL IV PRN (06:19)
[2019-12-16] MEDS ORDERED: NALOXONE HCL 1 MG in SODIUM CHLORIDE 0.9% 1000ML 1,000 ML IV PRN (06:19)
[2019-12-16] MEDS ORDERED: ePHEDrine sulfate 50 MG/ML AMP IV PRN (06:19)
--- NOTE | 2019-12-16 06:19 | Anesthesiology Consultation ---
Date of Service December 16, 2019 Assessment & Plan Chart Review Chart Review: Patient NOT seen in Pre Admission Testing and Acceptable Risk for Labor Epidural Consults Requested none ASA ASA2 Proposed Anesthesia Anesthesia Type: Labor Epidural Risk / Benefits Reviewed With: PT / POA / Parent / Guardian, Accepts Plan and Informed Consent Obtained History Height/Weight Height: 5 ft 4 in Weight: 96.615 kg Allergies Allergy/AdvReac Type Severity Reaction Status Date / Time phenazopyridine Allergy Intermediate SHORTNESS Verified 12/14/19 15:32 OF BREATH cephalexin Allergy Unknown HIVES/ Verified 12/14/19 15:32 THROAT SWELLING Medications Home Medications Medication Instructions Recorded Confirmed Last Taken PNV cmb#95-ferrous fumarate-FA 1 tab PO DAILY 02/09/19 12/16/19 12/15/19 [] escitalopram oxalate 10 mg tablet 10 mg PO DAILY 09/22/19 12/16/19 12/15/19 Active Medications Generic Name Dose Route Start Last Admin Trade Name Freq PRN Reason Stop Dose Admin Lactated Ringer's 1,000 mls @ 125 mls/hr 12/16/19 05:22 12/16/19 06:10 Lr IV 12/18/19 05:21 125 mls/hr .Q8H PRN Infusion L&D Protocol Protocol Penicillin G Potassium 6 mu/ 262 mls @ 262 mls/hr 12/16/19 05:45 12/16/19 05:35 Dextrose IV 12/16/19 06:44 262 mls/hr NOW ONE Administration Ropivacaine 100 ml 12/16/19 06:19 12/16/19 06:40 Fentanyl 2mcg/Ml Ropiv 1.25mg/Ml 100 Ml Bag EPI 12/17/19 06:18 100 ml PRN PRN Administration Pain R/T Labor Protocol NPO Date Last Intake of Fluids: 12/16/19 Time Last Intake of Fluids: 06:00 Date Last Intake of Solids: 12/15/19 Time Last Intake of Solids: 18:00 Past Medical History Medical History Anxiety Asthma Encounter for anatomic survey Migraine headache Miliaria Nephrolithiasis Renal colic Supervision of normal intrauterine in multigravida in third trimester Uterine cramping Varicella vaccine Exercise / Class Metabolic Activity II 4-5 Yardwork/Stairs/Walk up hill Past Family History Family History Grandmother (Maternal) Breast cancer Diabetes Other No pertinent family history in first degree relatives Past Surgical History Surgical History H/O lithotripsy H/O oral surgery S/P colonoscopy S/P tonsillectomy and adenoidectomy Past Anesthesia History No Hx of Anesthesia Complications and No Family Hx of Anesthesia Complications History of PONV No Hx of PONV and No Hx of Motion Sickness Social History Smoking Status: Never smoker Hx Alcohol Use: No Hx Substance Use: No Physical Exam Vital Signs Last Vital Signs Temp 36.6 C 12/16/19 05:06 Pulse 92 H 12/16/19 06:40 Resp 18 12/16/19 05:06 BP 138/73 12/16/19 06:40 Pulse Ox 97 12/16/19 06:38 ENMT Mouth: no dentition abnormality Thyromental Distance: > or= 3.5 Finger Breadths Mallampati Class: II Neck normal visual inspection Respiratory normal respiratory effort Auscultation: lungs clear to auscultation bilaterally Cardiovascular Rate/Rhythm: regular rate and regular rhythm Psychiatric Orientation: alert Testing Laboratory Results 12/16/19 05:46
--- NOTE | 2019-12-16 07:56 | Labor Progress Brief Note ---
Date of Service December 16, 2019 Subjective Comfortable with epidural. Pcn G 1st bag still infusing. FHT Cat 1, [place] irreg SVE 9/100/0 Continue labor, anticipate AROM after 4h PCN if no SROM. Anticipate . Assessment & Plan Admission and Anticipated Discharge Date Admission Date: December 16, 2019 Results & Data ([facility]) Vital Signs (Past 12 Hours) Vital Signs Temp Pulse Resp BP Pulse Ox 12/16/19 07:53 110 H 99 12/16/19 07:48 101 H 97 12/16/19 07:46 100 H 136/77 12/16/19 07:43 88 97 12/16/19 07:38 90 97 12/16/19 07:33 96 H 98 12/16/19 07:30 82 20 135/73 12/16/19 07:28 84 97 12/16/19 07:23 97 H 98 12/16/19 07:18 92 H 98 12/16/19 07:15 90 18 143/81 H 12/16/19 07:13 93 H 98 12/16/19 07:08 100 H 98 12/16/19 07:03 86 99 12/16/19 07:00 90 18 143/70 H 12/16/19 06:58 99 H 99 12/16/19 06:53 95 H 99 12/16/19 06:48 98 H 97 12/16/19 06:45 97 H 139/71 12/16/19 06:44 90 18 137/69 12/16/19 06:43 88 98 12/16/19 06:42 95 H 147/81 H 12/16/19 06:40 92 H 138/73 12/16/19 06:38 86 137/76 97 12/16/19 06:36 96 H 142/86 H 12/16/19 06:33 89 98 12/16/19 06:28 100 H 100 12/16/19 06:23 96 H 100 12/16/19 05:10 96 H 130/72 12/16/19 05:06 36.6 C 18 Coding Level of Care Code None
--- NOTE | 2019-12-16 09:56 | Delivery Summary ---
Vaginal Delivery Summary Date of Service December 16, 2019 Vaginal Delivery Summary Findings: Viable female with Apgars of 9 and 9. Baby delivered over intact perineum. Cord blood samples obtained. Placenta delivered spontaneously. Estimated blood loss 300 cc. Labor note: The patient is a 24-year-old 4 para 2, with an EDC of 12 December, at 40+ weeks gestational age who was admitted in active labor. The patient had been seen on labor and delivery the evening prior to admission for labor check. She had no cervical change and then discharged home. Contractions increased in intensity and she presented for evaluation. She denied rupture of membranes or vaginal bleeding. The patient has had a benign course. Her blood type is O+, antibody negative, rubella immune, hepatitis B negative, she had negative cystic fibrosis and SMA screening, she had a negative cell free DNA, she declined maternal serum AFP, she had a normal 1 hour Glucola x2, and a positive GBS bacteria. Upon admission the patient was 5 cm dilated 90% effaced in active labor. Anesthesia was consulted and an epidural was placed. Penicillin 6,000,000 unit loading dose was started with 3,000,000 units every 4 hours till delivery. The patient progressed to full dilatation at which time her delivering physician assumed care. She had an uncontrollable urge to push and the cervix was fully dilated. She had artificial rupture of membranes for clear fluid. Patient pushed for approximately 10 minutes delivering the viable female infant. Cord was clamped and cut. Cord blood samples were obtained and the placenta was delivered spontaneously. Inspection of the perineum was found to be an intact. Estimated blood loss was 300 cc, sponge and needle count was correct. [facility] Vaginal Delivery Charge Vaginal Delivery Codes: 62185 global code for the antepartum, delivery, and post-
[2019-12-16] MEDS ORDERED: ACETAMINOPHEN W/CODEINE #3 1 TAB PO PRN (10:08)
[2019-12-16] MEDS ORDERED: HYDROCORTISONE ACETATE 25 MG SUPP PR PRN (10:08)
[2019-12-16] MEDS ORDERED: SUPERCREAM 0.870% 15 GM JAR EXT PRN (10:08)
[2019-12-16] MEDS ORDERED: DIPHTHERIA/TETANUS/PERTUSSIS 0.5 ML SYR/VIAL IM ONE (10:08)
[2019-12-16] MEDS ORDERED: ACETAMINOPHEN 325 MG TAB PO PRN (10:08)
[2019-12-16] MEDS ORDERED: BENZOCAINE 20% AER SPR 82.5 GM CAN EXT PRN (10:08)
--- NOTE | 2019-12-16 11:33 | Anesthesia Procedure Note ---
Date of Service December 16, 2019 Anesthesia Post Epidural Note Vital Signs Vital Signs: Temp Pulse Resp BP Pulse Ox 36.6 C 93 H 18 120/70 98 12/16/19 05:06 12/16/19 11:30 12/16/19 08:30 12/16/19 11:30 12/16/19 09:48 Notes Mental Status: alert / awake / arousable and participated in evaluation Patient Amnestic to Procedure: Yes Nausea / Vomiting: adequately controlled Pain: adequately controlled Airway Patency, RR, SpO2: stable & adequate BP & HR: stable & adequate Hydration State: stable & adequate Neuraxial Anesthesia: was administered and sensory block resolved Anesthetic Complications: no major complications apparent and Pt Satisfied with anesthetic care Epidural: Removed without complications and With tip intact
[2019-12-16] MEDS: IBUPROFEN 600 MG TAB PO PRN (15:12)
[2019-12-16] MEDS: DOCUSATE SODIUM 100 MG CAP PO SCH (20:26)
[2019-12-17] MEDS ORDERED: PRENATAL VITAMIN 1 TAB PO SCH (08:00)
[2019-12-17] MEDS: DOCUSATE SODIUM 100 MG CAP PO SCH (08:52)
[2019-12-17] MEDS: IBUPROFEN 600 MG TAB PO PRN (08:52)
--- NOTE | 2019-12-17 08:54 | Obstetrical Progress Note ---
Date of Service December 17, 2019 Assessment & Plan (1) Prolonged , antepartum: - doing well - desires d/c - instructions podiatric medicine doctor - f/u in 6 week fpr pp check Subjective Ambulation: ambulating normally Voiding: no voiding problems Physical Exam Constitutional WD/WN, vitals as above Gastrointestinal (Abdomen) Fundus firm below umbilicus Musculoskeletal No deep calf tenderness Results & Data ([facility]) Vital Signs (Past 12 Hours) Vital Signs Temp Pulse Resp BP Pulse Ox 12/17/19 03:00 97.5 F L 78 18 134/83 99 12/16/19 23:50 97.9 F 82 18 120/63 98
[2019-12-17] MEDS ORDERED: ESCITALOPRAM OXALATE 10 MG TAB PO SCH (09:00)
[2019-12-17] MEDS ORDERED: bisacodyL 5 MG TABEC PO SCH (20:00)
== END 2019-12-17 11:40 | disposition home or self-care (01) | DRG 807 ==
LOC: OPB 04:50 → 4S1 04:54 → 4S2 14:50